=== PATIENT | female | born 1990 | race Caucasian/White ===

== ENCOUNTER 2020-04-25 22:49 | Emergency (ER) | payer OTHER, SELFPAY ==
[2020-04-25 22:58] VITALS: BP 136/66; PULSE 105; RESP 18; TEMP 36.7; O2SAT 99
--- NOTE | 2020-04-25 23:16 | XR_ITS ---
EXAMINATION: XR FOOT, RIGHT CLINICAL INFORMATION: Trauma to the fifth toe COMPARISON: None TECHNIQUE: AP, lateral, and oblique views of the right foot. FINDINGS: The bones and soft tissues are normal. No fracture. Alignment is anatomic. Joint spaces are maintained. XR/XR foot RT min 3V IMPRESSION: Normal right foot.
--- NOTE | 2020-04-25 23:22 | PC.NURSE ---
Off to XRay on hospital bed.
--- NOTE | 2020-04-25 23:27 | PC.NURSE ---
Pt returns from XRay on hospital bed without incident.
--- NOTE | 2020-04-25 23:34 | ED_ITS ---
HPI - Extremity Injury (Lower) General Chief Complaint: Extremity Injury, Lower Stated Complaint: TOE INJ Time Seen by Provider: 04/25/20 23:16 Source: patient Mode of arrival: ambulatory Limitations: no limitations History of Present Illness HPI Narrative: This is a 30-year-old female who states that she had a something into a portable safe place it on the ledge of the window however it was unstable and fell to the floor landing on her right 5th toe. Patient states that she has been able to ambulate on it and was able to come down 3 flights of stairs without difficulty. Related Data Allergies Allergy/AdvReac Type Severity Reaction Status Date / Time No Known Allergies Allergy Verified 04/25/20 22:56 Review of Systems Review of Systems: Pertinent positives and negatives as stated in HPI 10 point review of systems is otherwise negative. [facility] Past Medical History Source: nursing notes reviewed Medical History PCOS (polycystic ovarian syndrome) Tonsillectomy planned Social History Social History Alcohol intake: never Smoking Status: Unknown if ever smoked Use of substances other than those prescribed or required for medical reasons: No Advance Directives: No Advance Directives Information Provided: No Physical Exam Vital Signs: Vital Signs: Vital Signs Temp Pulse Resp BP Pulse Ox 04/25/20 22:58 98.1 F 105 H 18 136/66 99 Body Mass Index 0.3 VITAL SIGNS: Reviewed. GENERAL: Well developed, well nourished, in no acute distress. HEAD: Normocephalic/atraumatic, EYES: PERRLA, EOMI intact without pain, no nystagmus/pallor/icterus noted EARS: Ext canals without abnormality, TMs non-bulging and non-erythematous NOSE: Nares patent bilateral OROPHARYNX: no oral lesions noted, posterior pharynx clear and non-erythematous without noted tonsillar enlargement/erythema/exudates NECK: Supple, no adenopathy LUNGS: Normal breath sounds. No adventitious sounds or accessory muscle use. SpO2<99> CARDIOVASCULAR: Regular rate and rhythm without noted murmurs, no JVD or lower extremity edema. ABDOMEN: Soft, non-tender, non-distended with bowel sounds. No rigidity. No guarding. No palpable masses or hernias noted MUSCULOSKELETAL: No tenderness, deformities, or effusions noted on gross inspection. EXTREMITIES: No cyanosis, clubbing or edema; RIGHT 5TH TOE: there is noted lacerations, superficial to the dorsal aspect and is currently hemostatic with capillary refill less than 3 seconds no obvious deformity. SKIN: Inspection of the skin reveals no rashes, ulcerations, jaundice, pallor, or petechiae. NEUROLOGIC: Alert and oriented x 4. Strength and sensation to light touch were grossly intact x 4. Course Course Course Narrative: This is a 30-year-old female with history and clinical presentation consistent with trauma to the right 5th toe resulting in laceration and on review of x-rays negative for any evidence of fracture or dislocation. Superficial stellate laceration was closed with Dermabond. Patient was discharged in stable condition. Procedures Laceration Laceration 1: Site: lower extremity Side (If applicable): right Size (cm): 2 Description: stellate Depth: simple, single layer Pre-repair: wound explored and irrigated extensively Skin layer closed with: other ( Dermabond) Technique: other ( Dermabond) Discharge Plan Discharge Clinical Impression: Laceration Patient Disposition: Home, Self-Care Instructions: Skin Adhesive Care (ED), Laceration (ED) Additional Instructions: 1. Tylenol 1000 mg, orally, every 6 hours as needed for pain control. Do not exceed 4000 mg within 24 hours. 2. Ibuprofen 400 mg, orally with milk or food, every 6 hours as needed for pain control. 3. Do not get the skin adhesive wet for 24 hours. 4. Skin adhesive will gradually peel and come off as the underlying wound heals. 5. If you notice any worsening redness or swelling of the small toe or develops fevers please seek initial evaluation by your primary care provider or return to the emergency department for re-evaluation. You have received a Tdap vaccine today. The patient and/or family acknowledge understanding of results (as applicable), diagnosis, treatment plan, need for follow up, and symptoms that should prompt a return to the emergency room. Referrals: Sjuit Mcneal DO, MD [Primary Care Provider] - 2 days (Re-evaluation of right 5th toe laceration repaired with skin adhesive.)
--- NOTE | 2020-04-26 00:01 | PC.NURSE ---
Pt medicated with TDAP, unable to scan bar code. MD at bedside applying Dermabond to 5th toe on right foot. Pt aware of plan to DC home.
[2020-04-26 00:04] VITALS: BP 126/69; PULSE 92; RESP 16; O2SAT 96
== END 2020-04-26 00:20 | disposition home or self-care (01) ==
PROVIDERS: Emergency Provider Student in an Organized Health Care Education/Training Program; PCP Internal Medicine
DX: S91.114A Laceration without foreign body of right lesser toe(s) without damage to nail, initial encounter (principal); S90.414A Abrasion, right lesser toe(s), initial encounter; M79.671 Pain in right foot; W26.9XXA Contact with unspecified sharp object(s), initial encounter; Y93.9 Activity, unspecified; Y92.009 Unspecified place in unspecified non-institutional (private) residence as the place of occurrence of the external cause; Y99.8 Other external cause status; Z23 Encounter for immunization
CPT/HCPCS: 12001; 73630; 90471; 90715; 99284

== ENCOUNTER 2021-06-24 08:57 | Outpatient (REF) | payer OTHER, SELFPAY ==
[2021-06-24 09:43] LABS: COVID-19 Test Negative (Negative); IDNOW Serial# 16C4AD1C
== END 2021-06-24 08:58 | disposition home or self-care (01) ==
LOC: HO.LAB 08:57
PROVIDERS: Visit Provider Internal Medicine
DX: Z20.822 Contact with and (suspected) exposure to COVID-19 (principal)
CPT/HCPCS: 36415; 87635; C9803